=== PATIENT | female | born 1955 | race Hispanic/Latino ===

== ENCOUNTER 2018-10-16 09:53 | Day surgery (SDC) | payer BC ==
[2018-10-16] MEDS ORDERED: LACTATED RINGERS 1,000 ML IV SCH ×2 (10:00→12:00)
[2018-10-16] MEDS ORDERED: LACTATED RINGERS 1,000 ML ONE (10:12)
[2018-10-16] MEDS ORDERED: MARCAINE 0.5% INFILTRATI ONE ×2 (10:31→12:40)
[2018-10-16] MEDS ORDERED: XYLOCAINE 1%/ EPI 1:100,000 INFILTRATI ONE (10:32)
[2018-10-16] MEDS ORDERED: BACITRACIN ONE (10:32)
[2018-10-16] MEDS ORDERED: NACL P/F VIAL (10 ML) 10 ML ONE (10:32)
[2018-10-16] MEDS ORDERED: NACL 0.9% 1000 ML 1,000 ML ONE ×2 (10:32→13:43)
[2018-10-16] MEDS ORDERED: MORPHINE IV NR (11:11)
[2018-10-16] MEDS ORDERED: ZOFRAN IV PRN (11:12)
[2018-10-16] MEDS ORDERED: DILAUDID IV PRN (11:12)
--- NOTE | 2018-10-16 11:13 | Anesthesia Day of Surgery ---
Anesthesia Day of Surgery - Day of Surgery Patient Examined: Yes Patient H&P Reviewed: Yes Patient is NPO: Yes
--- NOTE | 2018-10-16 11:16 | Anesthesia Consultation ---
Anesthesia Consult and Med Hx Date of service: 10/16/18 - Airway Anesthetic Teeth Evaluation: Good ROM Head & Neck: Adequate Mental/Hyoid Distance: Adequate Mallampati Class: Class II Intubation Access Assessment: Good - Pre-Operative Health Status ASA Pre-Surgery Classification: ASA3 Proposed Anesthetic Plan: General - Pulmonary Hx Smoking: No Hx Sleep Apnea: No (HAMZAH PRE SCREEN LOW RISK.) - Cardiovascular System Hx Hypertension: No - Central Nervous System Hx Neuromuscular Disorder: Yes (Guillaine-Ideal Syndrome) Hx Back Pain: Yes (TO TEX LEGS) Hx Psychiatric Problems: Yes (Depression, chronic pain) - Hematic Hx Anemia: Yes ( AND LOW IRON LEVELS) - Other Systems Hx Cancer: No
[2018-10-16] MEDS ORDERED: TYLENOL PO NR (12:00)
[2018-10-16] MEDS ORDERED: VERSED IV NR (12:00)
[2018-10-16] MEDS ORDERED: SUBLIMAZE ONE ×2 (12:01→12:42)
[2018-10-16] MEDS ORDERED: DIPRIVAN 10 MG/ML IV ONE ×2 (12:01→12:41)
[2018-10-16] MEDS ORDERED: XYLOCAINE 1%/ EPI 1:100,000 IV ONE (12:40)
[2018-10-16] MEDS ORDERED: NACL P/F VIAL (10 ML) INFILTRATI ONE (12:40)
[2018-10-16] MEDS ORDERED: BACITRACIN IR ONE (12:40)
[2018-10-16] MEDS ORDERED: ZOFRAN ONE (13:14)
[2018-10-16] MEDS ORDERED: DECADRON ONE (13:14)
[2018-10-16] MEDS ORDERED: ZEMURON IV ONE (13:23)
[2018-10-16] MEDS ORDERED: NEO SYNEPHRINE/NS Syringe(OR USE) IV ONE (13:23)
[2018-10-16] MEDS ORDERED: ANCEF/STERILE WATER 2 GM/20 ML IV NR (13:30)
[2018-10-16] MEDS ORDERED: DILAUDID ONE (14:47)
[2018-10-16 19:12] VITALS: BP 126/60
--- NOTE | 2018-10-19 09:44 | XRay Report ---
THORACIC SPINE, 2 VIEWS History: Post laminectomy syndrome. Findings: Fluoroscopy was provided by radiology during dorsal column stimulator insertion by Dr. Baltazar. 2 fluoroscopic images are presented which demonstrate termination of the neurostimulator at the level of T7. Please correlate with the procedural report as needed. Impression: Dorsal column stimulator placement as described.
--- NOTE | 2018-11-04 19:16 | Operative Report ---
Operative Report Operative Report: Date of service: 10/16/2018. PREOPERATIVE DIAGNOSIS: 1. Chronic lower extremity radiculopathy. 2. Chronic axial low back pain. 3. Degenerative disc disease of lumbar spine. 4. Postlaminectomy syndrome. POSTOPERATIVE DIAGNOSIS: 1. Chronic lower extremity radiculopathy. 2. Chronic axial low back pain. 3. Degenerative disc disease of lumbar spine. 4. Postlaminectomy syndrome. PROCEDURE PERFORMED: 1. Spinal cord stimulator implantation with percutaneous insertion of dual epidural octapolar leadsthoracic spine. 2. Implantation of permanent dual senior ui designer. 2. Programming of permanent neurostimulator [id number] minutes. SURGEON: JAMIE MAY M.D. ANESTHESIA: General, 1% lidocaine local EBL: 10 mL DESCRIPTION OF PROCEDURE: Following informed consent, the patient was brought to the operative suite and placed on the table a prone position. General anesthesia was delivered without complication. The back was sterilely prepped and draped in routine fashion. Patient received 2 g of Ancef intravenously for antimicrobial prophylaxis. A C-arm was brought into place with attention turned to the lumbar spine on the right side. Attention was turned toward the right T12-L1 interlaminar space. A skin incision was made with a #11 blade at the level of L2-3 after injection of 1% lidocaine with epinephrine for local anesthesia. A 22-gauge spinal needle was advanced to the L1 lamina with additional placement of 0.5% bupivacaine. A 13-gauge Touhy needle was then advanced under fluoroscopic guidance to the right interlaminar space and the epidural space was entered using [id number] technique. Aspiration was negative for blood and CSF. A guidewire was easily passed into the dorsal epidural space. This was followed by placement of a permanent 8 contact- 50 cm lead (StimWave) which was guided in the cephalad direction under fluoroscopic guidance to the lower aspect of T7 to the left of midline. Position was confirmed in both the AP and lateral projections and appeared satisfactory. Using identical technique, a second 14-gauge Tuohy needle was advanced under fluoroscopic guidance parallel to the initial Touhy needle to the T12-L1 interlaminar space. The posterior epidural space was entered below the initial lead placement. Aspiration was again negative for blood and CSF. A second octapolar 50 cm permanent 8 contact lead was guided in a cephalad direction under fluoroscopic guidance to the superior aspect of T9 on the right. Both leads were positioned in a paramedian location. Position was again confirmed in the AP and lateral projections which appeared satisfactory. Small skin incisions was then made after injection of 1% lidocaine with epinephrine, at each needle entry points. The tissues were sharply and bluntly dissected down to the dorsal lumbar fascia. The needles were removed. Following removal of the stylets, the fiber optic SCS senior ui designer was carefully threaded into the lumen of each lead. The sub fascial anchoring ([email or web address], [place]) was initially placed over the left-sided lead, the device was deployed anchoring the lead in satisfactory position. Attention was next turned to the right-sided lead. In identical fashion, the subfascial anchoring system was deployed. During deployment, there was slight retraction of the lead to the mid T9 level from the superior T9 endplate. Lead position, however, appeared satisfactory. A small transverse incision was made over L5-S1 on the right. The leads were then carefully tunneled within the subcutaneous tissue and the marker bands appear to be in satisfactory position. The excess distal aspect of each lead was removed and the distal aspects were then anchored to the dorsal lumbar fascia with 2-0 silk suture. Position was checked with fluoroscopy. The wounds were then copiously irrigated with antibiotic solution. Impedance of each lead and senior ui designer was checked and found satisfactory. The paramedian incision was closed in 2 layers with subcutaneous 3-0 Vicryl interrupted sutures and 3-0 Prolene interrupted sutures were utilized for skin approximation. The distal transverse incision was closed in 2 layers with 2-0 Vicryl interrupted deep sutures, and 3-0 Prolene interrupted skin sutures. Sterile dressings are placed over both incisions. Patient was then turned onto the rsouth solon in the supine position and taken to the PACU where he was noted to be a stable cardiopulmonary neurologic condition. The SCS system was then programmed. Thirty minutes were spent during post implantation programming of the permanent system including frequency, pulse amplitude, pulse width, pulse duration and impedance check. The patient was provided with 3 separate programs for use during the initial post implantation interval. CONDITION AT DISCHARGE: Good. FOLLOW-UP: In office in 7 days for wound check.
== END 2018-10-16 09:54 | disposition home or self-care (01) ==
LOC: OR 09:53
PROVIDERS: ATTEND Radiology Diagnostic Radiology
DX: M51.36 Other intervertebral disc degeneration, lumbar region (principal); M96.1 Postlaminectomy syndrome, not elsewhere classified; F32.9 Major depressive disorder, single episode, unspecified; F41.9 Anxiety disorder, unspecified; D64.9 Anemia, unspecified; Z79.899 Other long term (current) drug therapy; Z98.49 Cataract extraction status, unspecified eye; Z98.890 Other specified postprocedural states; Z90.49 Acquired absence of other specified parts of digestive tract; Z88.8 Allergy status to other drugs, medicaments and biological substances
CPT/HCPCS: 63650; 63685; 72070; C1713; C1767; J0690; J1100; J1170; J2250; J2270; J2370; J2405; J2704; J3010; J7030; J7120